=== PATIENT | male | born 1975 | race Caucasian/White ===

== ENCOUNTER 2023-08-17 08:49 | Outpatient (CLI) | payer OTHER, SELFPAY | END 2023-08-17 08:50 | disposition home or self-care (01) | PROVIDERS: PCP Emergency Medicine; Visit Provider Emergency Medicine | DX: Z13.1 Encounter for screening for diabetes mellitus (principal); Z13.220 Encounter for screening for lipoid disorders; R53.83 Other fatigue | CPT/HCPCS: 80048; 80061; 84403 ==

== ENCOUNTER 2024-05-22 09:40 | Outpatient (CLI) | payer OTHER, SELFPAY | END 2024-05-22 09:41 | disposition home or self-care (01) | LOC: NFLDREF 05-24 07:45 | PROVIDERS: PCP Emergency Medicine; Referring Provider Emergency Medicine; Visit Provider Physician Assistant Medical | DX: R10.9 Unspecified abdominal pain (principal) | CPT/HCPCS: 86231; 86258; 86364 ==

== ENCOUNTER 2024-08-03 10:35 | Outpatient (CLI) | payer OTHER, SELFPAY | END 2024-08-03 10:36 | disposition home or self-care (01) | LOC: NFLDREF 08-10 02:24 | PROVIDERS: PCP Emergency Medicine; Referring Provider Emergency Medicine; Visit Provider Emergency Medicine | DX: R20.2 Paresthesia of skin (principal); R79.89 Other specified abnormal findings of blood chemistry; I10 Essential (primary) hypertension; D68.51 Activated protein C resistance | CPT/HCPCS: 80048; 82607; 84443 ==

== ENCOUNTER 2024-12-26 08:49 | Outpatient (CLI) | payer OTHER, SELFPAY | END 2024-12-26 08:50 | disposition home or self-care (01) | LOC: NFLDREF 12-30 06:02 | PROVIDERS: PCP Emergency Medicine; Referring Provider Emergency Medicine; Visit Provider Emergency Medicine | DX: Z00.00 Encounter for general adult medical examination without abnormal findings (principal); I10 Essential (primary) hypertension; R53.83 Other fatigue; Z80.42 Family history of malignant neoplasm of prostate; Z12.5 Encounter for screening for malignant neoplasm of prostate | CPT/HCPCS: 80048; 80061; 84403; G0103 ==